=== PATIENT | female | born 1950 | race Caucasian/White ===

== ENCOUNTER 2016-09-12 21:38 | Emergency (ER) | payer OTHER ==
[2016-09-12 22:23] VITALS: BP 134/68; PULSE 77; RESP 18; TEMP 97.7; O2SAT 92
[2016-09-12] MEDS ORDERED: CEPHALEXIN 500 MG CAP PO ONE (22:58)
--- NOTE | 2016-09-12 23:02 | UCPHY ---
H & P Time Seen by Provider: 09/12/16 22:53 Patient Type: New HPI/ROS: This patient was done by a yellow jacket to right hand last night and had typical localized swelling but, itching and mild burning. However over the past 24 hours she has developed redness that is extended all the way up to her upper arm concerning her for infection. She reports moderate discomfort associated with this which diminishes with ibuprofen-400 mg at 8:00 p.m.. No other exacerbating factors except for some relief of itching with Benadryl. ROS: No fevers chills or other constitutional symptoms. GI: No nausea vomiting. Pulmonary: No wheezing or shortness of breath. Cardiovascular: No lightheadedness. 7 point ROS is otherwise negative. Past Medical/Surgical History: Hypothyroid Otherwise healthy Smoking Status: Never smoked Physical Exam: Physical Exam Vital signs are normal. General: No acute distress HEENT: Nose: Clear discharge bilaterally. No sinus tenderness to percussion. Oropharynx: No erythema or exudates. No dysphonia. No drooling or stridor. Eyes: Pupils equal and react to light. Extraocular motions are intact. Neck: Supple with no meningismus. No lymphadenopathy Lungs: Clear to auscultation bilaterally with no rales, rhonchi or wheeze. No respiratory distress. Cardiac: Regular rate and rhythm with no murmur gallop or rub Skin: Patient has confluent erythema extending to the dorsum of the right hand up the forearm to the mid upper arm-ulnar aspect with lymphangitic streaking in the upper arm. No fluctuance. No retained foreign bodies are noted. No other skin rash. Neuro: Alert with no focal deficits noted. Initial differential diagnosis: The sting with cellulitis, lymphangitis, allergic reaction Constitutional: Initial Vital Signs Temperature (C) 36.5 C 09/12/16 22:21 Heart Rate 77 09/12/16 22:21 Respiratory Rate 18 09/12/16 22:21 Blood Pressure 134/68 H 09/12/16 22:21 O2 Sat (%) 92 09/12/16 22:21 O2 Delivery Mode Room Air Allergies/Adverse Reactions: Penicillins Allergy (Intermediate, Verified 09/12/16 22:20) Rash codeine Allergy (Mild, Verified 09/12/16 22:20) Vomiting scallops Allergy (Intermediate, Uncoded 09/12/16 22:20) Diarrhea Home Medications: Medication Instructions Recorded Benadryl 09/12/16 Cephalexin [Keflex (*)] 500 mg PO QID #28 cap 09/12/16 Estrogens, Conjugated 09/12/16 Synthroid 09/12/16 Testosterone 09/12/16 MDM/Departure - MDM Medications Given: Discontinued Medications Cephalexin HCl (Keflex) 500 mg PO EDNOW ONE PRN Reason: Protocol Stop: 09/12/16 22:59 Last Admin: 09/12/16 23:02 Dose: 500 mg ED Course/Re-evaluation: Discussion: Patient here with bee sting with associated cellulitis and possible early lymphangitis without evidence of sepsis, anaphylaxis or other complicating factors. Counseled her regarding this. She is given a 1st dose of Keflex here. - Depart Disposition: Home, Routine, Self-Care Clinical Impression: Cellulitis Qualifiers: Site of cellulitis: extremity Site of cellulitis of extremity: upper extremity Laterality: right Qualified Code(s): L03.113 - Cellulitis of right upper limb Bee sting Qualifiers: Encounter type: initial encounter Injury intent: accidental or unintentional Qualified Code(s): T63.441A - Toxic effect of venom of bees, accidental ( unintentional), initial encounter Condition: Good Instructions: Cellulitis (ED), Insect Bite or Sting (ED) Additional Instructions: Diagnosis: 1. Bee sting 2. Cellulitis right arm Plan: Elevate the arm when able Keflex antibiotic Benadryl for itching or swelling Ibuprofen for pain and swelling as needed. Return for any significant worsening despite the treatment plan. Prescriptions: Cephalexin [Keflex (*)] 500 mg PO QID #28 cap Referrals: AMANDA NIÑO [Primary Care Provider] - As per Instructions - PQRS PQRS Measurement: 134: Depression screening and followup, PRIME MD-PHQ2 (12 years and older) Over the last 2 weeks, how often have you been bothered by any of the following problems? 1. Feeling down, depressed, or hopeless? 2. Little interest or pleasure in doing things? Patient answered no to both 1 and 2 130: Documentation of medications. Reviewed all patient medications, doses, route and frequency. 226: Do you smoke? [No.] 47: 65 and older: Advanced care planning. Patient designates surrogate decision maker as spouse 51: 18 years old and older with diagnosis of COPD, spirometry performance. NA 52: 18 years old and older with COPD and symptoms of COPD or FEV1<60% predicted prescribed a B Agonist. NA
== END 2016-09-12 23:07 | disposition home or self-care (01) ==
LOC: CED 21:38
DX: L03.113 Cellulitis of right upper limb (principal); T79.8XXA Other early complications of trauma, initial encounter; T63.441A Toxic effect of venom of bees, accidental (unintentional), initial encounter
CPT/HCPCS: G0463-PO

== ENCOUNTER → 2018-01-18 | Outpatient (CLI) | payer OTHER | LOC: BMCIMAGING 14:27 | PROVIDERS: ATTEND Orthopaedic Surgery | DX: M16.0 Bilateral primary osteoarthritis of hip (principal) ==

== ENCOUNTER 2018-04-06 06:38 | Inpatient (IN) | payer OTHER ==
[2018-04-06] MEDS ORDERED: ASPIRIN 81 MG CHEWABLE TAB PO ONE (06:54)
[2018-04-06 07:11] LABS: PLATELET COUNT 269 10^3/uL (150-400)
[2018-04-06] MEDS ORDERED: FAMOTIDINE 20 MG/NACL 50 ML IV ONE (07:24)
[2018-04-06] MEDS ORDERED: fentaNYL 100 MCG/2 ML INJ IVP ONE ×2 (07:24→08:52)
--- NOTE | 2018-04-06 07:32 | EDPHY ---
H & P Time Seen by Provider: 04/06/18 06:54 HPI/ROS: HPI Chest pain. 68-year-old female by private vehicle. She complains of anterior left-sided chest pain described as a squeezing and aching sensation since 9:00 p.m. Last night. She reports that it is more intense at times. She reports that she has had associated shortness of breath with it and that she does not feel like she can take a deep breath. She has a history of acid reflux. She is on Nexium for this. She states that her pain is different from the discomfort associated with her acid reflux. He has a family history of coronary artery disease on her father's side. Otherwise she denies other risk factors. ROS: Constitutional: No fever, no chills. No weakness. Eyes: No discharge. No changes in vision. ENT: No sore throat. No nasal congestion or rhinorrhea. Respiratory: No cough. As above. Cardiac: As above, no palpitations. Gastrointestinal: No abdominal pain, no vomiting, no diarrhea. Genitourinary: No hematuria. No dysuria or increased frequency with urination. Musculoskeletal: No back pain. No neck pain. No myalgias or arthralgias. Skin: No rashes. Neurological: No headache. No focal weakness or altered sensation. Past medical history: Hypothyroid, hernia, reflux, hysterectomy, but neck to me. She has seen Dr. David Tan in the past secondary to palpitations. Primary care is through [facility]. Social history: Nonsmoker. No alcohol. Here by herself. Physical Exam: General Appearance: Alert, she appears uncomfortable but not in distress. This patient is responding to questions appropriately and in full sentences. This patient appears well-hydrated and well-nourished. Eyes: Pupils equal and round no pallor or injection. No lid edema, erythema or injection. Respiratory: There are no retractions, lungs are clear to auscultation with good air movement bilaterally. Cardiovascular: Regular rate and rhythm. No murmur. No significant tenderness on palpation of the chest wall Gastrointestinal: Abdomen is soft and nontender, no masses, bowel sounds normal. No focal tenderness at McBurney's point. No Bocanegra sign. Neurological: Motor sensory function is grossly intact. Cranial nerves are normal. Gait is normal. Skin: Warm and dry, no rashes on inspection of the chest wall. Musculoskeletal: Neck is supple and nontender. Extremities are symmetrical. All joints range without pain or impingement. Psychiatric: No agitation. No depression. Database: EKG: EKG time is 6:50 a.m.; EKG shows a narrow complex normal sinus rhythm with a ventricular rate of 82. Subtle J-point elevation in 2, 3 and AVF. Subtle AL depression mostly in lead 1 and lead 2. The AL, QRS, QT intervals are within normal limits. No other ST-T wave changes indicative of ischemic or injury pattern. No evidence of right heart strain. Interpreted by me. EKG time is 10:30 a.m.; EKG shows a narrow complex normal sinus rhythm with a ventricular rate of 73. Left axis deviation noted. The AL, QRS, QT intervals are within normal limits. There are no ST-T wave changes indicative of ischemic or injury pattern. No evidence of right heart strain. Interpreted by me. Imaging: Chest x-ray AP portable; the cardiac mediastinal silhouette is unremarkable. No evidence of infiltrate or pneumothorax. No acute cardiopulmonary disease process noted. Interpreted by me. Procedures: Emergency department course: Triage vital signs reviewed. She is moderately hypertensive. Triage vital signs otherwise normal. On my evaluation of this patient blood pressure is currently 128/80. IV was placed. She was placed on a personnel monitor. EKG obtained and reviewed by myself. She was given 324 mg of chewed aspirin. She will also receive fentanyl, 25 mcg for anxiolysis and pain. This will be repeated as needed. Heart score is 4 7:55 a.m., patient re-evaluated. She is resting comfortably at this time. She denies any chest pain after above medications. Results of her diagnostic workup in the emergency department discussed. Plan for admission reviewed. She endorses. All of her questions were answered. Hospitalist paged. 8:00 a.m., spoke with on-call hospitalist. Case discussed in detail. Patient accepted for admission to telemetry observation under the care of Dr. Rosa Reynolds. Patient admitted in stable condition. 10:15 a.m., the patient is awaiting admission. She is still having some intermittent chest pain which she describes as mid substernal. She will be given a GI cocktail. EKG to be repeated and troponin to be repeated. She is supposed to go to the floor shortly. 10:43 a.m., 2nd troponin within normal limits. EKG repeated an unremarkable. Differential Diagnosis: The differential diagnosis on this patient includes but is not limited to acute coronary syndrome, GERD, PE. Aortic dissection unlikely. This represents a partial list of diagnoses considered. These considerations are based on history , physical exam, past history, reassessment and diagnostic testing. Smoking Status: Never smoked Constitutional: Initial Vital Signs Temperature (C) 36.4 C 04/06/18 06:39 Heart Rate 83 04/06/18 06:39 Respiratory Rate 16 04/06/18 06:39 Blood Pressure 142/112 H 04/06/18 06:39 O2 Sat (%) 97 04/06/18 06:39 O2 Delivery Mode Room Air O2 (L/minute) 0 Allergies/Adverse Reactions: Penicillins Allergy (Intermediate, Verified 04/06/18 06:43) Rash codeine Allergy (Mild, Verified 04/06/18 06:43) Vomiting scallops Allergy (Intermediate, Uncoded 04/06/18 06:43) Diarrhea Home Medications: Medication Instructions Recorded Levothyroxine [Synthroid 50 mcg 50 mcg PO DAILY06 09/12/16 (*)] Acyclovir [Zovirax 400 mg (*)] 800 mg PO BID PRN 04/06/18 Aspirin EC [Aspirin EC 81 mg (*)] 81 mg PO DAILY 04/06/18 Doxepin HCl 0.3 ml PO HS 04/06/18 Esomeprazole Magnesium 20 mg PO DAILY 04/06/18 Estrogen Compound 0.5 ml TP DAILY 04/06/18 Herbals/Supplements -Info Only 1 ea PO DAILY 04/06/18 Testosterone Compound 0.5 ml TP DAILY 04/06/18 Medical Decision Making - Diagnostics Imaging Results: Imaging Impressions Chest X-Ray 04/06/18 06:55 Impression: 1. Low-grade congestive heart failure/fluid overload. 2. See above report for additional findings. - Data Points Laboratory Results: Laboratory Results 04/06/18 06:55 04/06/18 06:55 04/06/18 04/06/18 04/06/18 06:55 06:55 06:55 WBC 9.29 10^3/uL 10^3/uL (3.80-9.50) RBC 5.11 10^6/uL 10^6/uL (4.18-5.33) Hgb 15.1 g/dL g/dL (12.6-16.3) Hct 45.8 % % (38.0-47.0) MCV 89.6 fL fL (81.5-99.8) MCH 29.5 pg pg (27.9-34.1) MCHC 33.0 g/dL g/dL (32.4-36.7) RDW 13.8 % % (11.5-15.2) Plt Count 269 10^3/uL 10^3/uL (150-400) MPV 10.3 fL fL (8.7-11.7) Neut % (Auto) 68.8 % % (39.3-74.2) Lymph % (Auto) 17.1 % % (15.0-45.0) [place] % (Auto) 8.7 % % (4.5-13.0) Eos % (Auto) 4.1 % % (0.6-7.6) Baso % (Auto) 1.0 % % (0.3-1.7) Nucleat RBC Rel Count 0.0 % % (0.0-0.2) Absolute Neuts (auto) 6.39 10^3/uL 10^3/uL (1.70-6.50) Absolute Lymphs (auto) 1.59 10^3/uL 10^3/uL (1.00-3.00) Absolute Monos (auto) 0.81 10^3/uL H 10^3/uL (0.30-0.80) Absolute Eos (auto) 0.38 10^3/uL 10^3/uL (0.03-0.40) Absolute Basos (auto) 0.09 10^3/uL 10^3/uL (0.02-0.10) Absolute Nucleated RBC 0.00 10^3/uL 10^3/uL (0-0.01) Immature Gran % 0.3 % % (0.0-1.1) Immature Gran # 0.03 10^3/uL 10^3/uL (0.00-0.10) PT 13.0 SEC SEC (12.0-15.0) INR 0.96 (0.83-1.16) APTT 28.1 SEC SEC (23.0-38.0) D-Dimer 0.31 ug/mLFEU ug/mLFEU (0.00-0.50) Sodium 141 mEq/L mEq/L (135-145) Potassium 4.3 mEq/L mEq/L (3.3-5.0) Chloride 105 mEq/L mEq/L (97-110) Carbon Dioxide 27 mEq/l mEq/l (22-31) Anion Gap 9 mEq/L mEq/L (6-14) BUN 18 mg/dL mg/dL (7-23) Creatinine 0.8 mg/dL mg/dL (0.6-1.0) Estimated GFR > 60 Glucose 96 mg/dL mg/dL (70-100) Calcium 10.5 mg/dL H mg/dL (8.5-10.4) Total Bilirubin 0.6 mg/dL mg/dL (0.1-1.4) Conjugated Bilirubin 0.1 mg/dL mg/dL (0.0-0.5) Unconjugated Bilirubin 0.5 mg/dL mg/dL (0.0-1.1) AST 27 IU/L IU/L (14-46) ALT 31 IU/L IU/L (9-52) Alkaline Phosphatase 82 IU/L IU/L (38-126) POC Troponin I Total Protein 7.8 g/dL g/dL (6.3-8.2) Albumin 4.6 g/dL g/dL (3.5-5.0) Lipase 308 IU/L H IU/L (23-300) 04/06/18 06:54 WBC RBC Hgb Hct MCV MCH MCHC RDW Plt Count MPV Neut % (Auto) Lymph % (Auto) [place] % (Auto) Eos % (Auto) Baso % (Auto) Nucleat RBC Rel Count Absolute Neuts (auto) Absolute Lymphs (auto) Absolute Monos (auto) Absolute Eos (auto) Absolute Basos (auto) Absolute Nucleated RBC Immature Gran % Immature Gran # PT INR APTT D-Dimer Sodium Potassium Chloride Carbon Dioxide Anion Gap BUN Creatinine Estimated GFR Glucose Calcium Total Bilirubin Conjugated Bilirubin Unconjugated Bilirubin AST ALT Alkaline Phosphatase POC Troponin I 0.00 ng/mL ng/mL (0.00-0.08) Total Protein Albumin Lipase Medications Given: Discontinued Medications Al Hydroxide/Mg Hydroxide (Maalox Susp) 30 ml PO ONCE ONE Stop: 04/06/18 10:10 Last Admin: 04/06/18 10:17 Dose: 30 ml Aspirin (Aspirin) 324 mg PO EDNOW ONE Stop: 04/06/18 06:55 Last Admin: 04/06/18 07:08 Dose: 324 mg Fentanyl (Sublimaze) 25 mcg IVP EDNOW ONE Stop: 04/06/18 07:25 Last Admin: 04/06/18 07:35 Dose: 25 mcg Fentanyl (Sublimaze) 50 mcg IVP EDNOW ONE Stop: 04/06/18 08:53 Last Admin: 04/06/18 08:55 Dose: 50 mcg Hyoscyamine Sulfate (Levsin, Hyomax-Sl) 0.25 mg PO ONCE ONE Stop: 04/06/18 10:10 Last Admin: 04/06/18 10:17 Dose: 0.25 mg Famotidine/Sodium Chloride (Pepcid 20 Mg (Premix)) 50 mls @ 200 mls/hr IV EDNOW ONE Stop: 04/06/18 07:38 Last Admin: 04/06/18 07:34 Dose: 50 mls Lidocaine (Lidocaine 2% Viscous) 15 ml PO ONCE ONE Stop: 04/06/18 10:10 Last Admin: 04/06/18 10:17 Dose: 15 ml Point of Care Test Results: Chemistry 04/06/18 06:54 POC Troponin I 0.00 ng/mL ng/mL (0.00-0.08) Departure - Departure Disposition: [facility] Inpatient Acute Clinical Impression: Chest pain
[2018-04-06 07:37] LABS: INR 0.96 (0.83-1.16)
[2018-04-06] MEDS ORDERED: HYOSCYAMINE SULFATE 0.125 MG TAB PO ONE (10:09)
[2018-04-06] MEDS ORDERED: MAG HYDROX/AL HYDROX/SIMETH 30 ML UDCUP PO ONE (10:09)
[2018-04-06] MEDS ORDERED: LIDOCAINE 2% VISCOUS 15 ML UDCUP PO ONE (10:09)
--- NOTE | 2018-04-06 11:03 | CPEKG ---
Test Reason : OPEN Blood Pressure : / mmHG Vent. Rate : 073 BPM Atrial Rate : 073 BPM P-R Int : 184 ms QRS Dur : 085 ms QT Int : 408 ms P-R-T Axes : 038 -39 034 degrees QTc Int : 450 ms Sinus rhythm Left axis deviation Confirmed by Evette Patiño ([id number]) on 04/06/2018 11:02:18 AM Referred By: Confirmed By:Evette Patiño
[2018-04-06] MEDS ORDERED: HYDROmorphONE/DILAUDID 1 MG/ML INJ IVP ONE (11:08)
[2018-04-06] MEDS ORDERED: ACETAMINOPHEN 325 MG TAB PO PRN (14:59)
[2018-04-06] MEDS ORDERED: ONDANSETRON 4 MG/2 ML VIAL IVP PRN (14:59)
[2018-04-06] MEDS ORDERED: ACYCLOVIR 400 MG TAB PO PRN (15:01)
[2018-04-06] MEDS: FAMOTIDINE 20 MG TAB PO SCH ×2 (15:10→20:36)
[2018-04-06] MEDS: ONDANSETRON DISINTEGRATING 4 MG TAB PO PRN ×2 (15:50→20:36)
[2018-04-06] MEDS ORDERED: HYDROmorphONE/DILAUDID 1 MG/ML INJ IVP PRN (16:09)
--- NOTE | 2018-04-06 16:17 | PDGENHP ---
History and Physical - Chief Complaint chest pain - History of Present Illness 68 yo female with h/o hypothyroidism presents to ED with CP, which started last night after a big meal. The pain is sharp, localized to her lower left sternal region with radiation to her back and up into her neck. It is worse with inspiration. Nothing alleviates the pain. She also endorses SOB and orthopnea. Denies weight gain or LE edema. When the pain persisted this am, she presented to the ED. In the ED, a troponin was negative. She received a GI cocktail with no relief. D dimer is negative. No recent travel or surgery. She notes h/o esophagitis , diagnosed by EGD several years ago for which she takes Nexium, but admits to missing some doses recently. History Information - Allergies/Home Medication List Allergies/Adverse Reactions: Penicillins Allergy (Intermediate, Verified 04/06/18 06:43) Rash codeine Allergy (Mild, Verified 04/06/18 06:43) Vomiting scallops Allergy (Intermediate, Uncoded 04/06/18 06:43) Diarrhea Home Medications: Levothyroxine [Synthroid 50 mcg (*)] 50 mcg PO DAILY06 09/12/16 [Last Taken 06:00] Acyclovir [Zovirax 400 mg (*)] 800 mg PO BID PRN 04/06/18 [Last Taken Unknown] Aspirin EC [Aspirin EC 81 mg (*)] 81 mg PO DAILY 04/06/18 [Last Taken 04/06/18 06:00] Doxepin HCl 0.3 ml PO HS 04/06/18 [Last Taken 04/05/18 21:00] Esomeprazole Magnesium 20 mg PO DAILY 04/06/18 [Last Taken 04/06/18 06:00] Estrogen Compound 0.5 ml TP DAILY 04/06/18 [Last Taken 04/05/18 09:00] Herbals/Supplements -Info Only 1 ea PO DAILY 04/06/18 [Last Taken 04/06/18 06:00 ] Testosterone Compound 0.5 ml TP DAILY 04/06/18 [Last Taken 04/05/18 09:00] I have personally reviewed and updated: family history, medical history, social history, surgical history - Past Medical History Additional medical history: Hypothyroidism. Hormone therapy - Surgical History Reports: hysterectomy - Family History Additional family history: paternal grandfather with CAD - Social History Smoking Status: Never smoked Alcohol Use: Rarely Drug Use: None Additional social history: Lives independently Review of Systems Review of Systems: ROS: 10pt was reviewed & negative except for what was stated in HPI & below Physical Exam Physical Exam: Temp Pulse Resp BP Pulse Ox 36.7 C 82 19 130/90 H 91 L 04/06/18 12:30 04/06/18 12:30 04/06/18 12:30 04/06/18 12:30 04/06/18 12:30 Constitutional: no apparent distress Eyes: PERRL Ears, Nose, Mouth, Throat: moist mucous membranes Cardiovascular: regular rate and rhythym Respiratory: no respiratory distress, inspiratory crackles Gastrointestinal: normoactive bowel sounds, soft, non-tender abdomen Skin: warm Musculoskeletal: full muscle strength Neurologic: AAOx3 Psychiatric: interacting appropriately Lab Data & Imaging Review 04/06/18 06:55 04/06/18 06:55 WBC 9.29 10^3/uL (3.80-9.50) 04/06/18 06:55 RBC 5.11 10^6/uL (4.18-5.33) 04/06/18 06:55 Hgb 15.1 g/dL (12.6-16.3) 04/06/18 06:55 Hct 45.8 % (38.0-47.0) 04/06/18 06:55 MCV 89.6 fL (81.5-99.8) 04/06/18 06:55 MCH 29.5 pg (27.9-34.1) 04/06/18 06:55 MCHC 33.0 g/dL (32.4-36.7) 04/06/18 06:55 RDW 13.8 % (11.5-15.2) 04/06/18 06:55 Plt Count 269 10^3/uL (150-400) 04/06/18 06:55 MPV 10.3 fL (8.7-11.7) 04/06/18 06:55 Neut % (Auto) 68.8 % (39.3-74.2) 04/06/18 06:55 Lymph % (Auto) 17.1 % (15.0-45.0) 04/06/18 06:55 [place] % (Auto) 8.7 % (4.5-13.0) 04/06/18 06:55 Eos % (Auto) 4.1 % (0.6-7.6) 04/06/18 06:55 Baso % (Auto) 1.0 % (0.3-1.7) 04/06/18 06:55 Nucleat RBC Rel Count 0.0 % (0.0-0.2) 04/06/18 06:55 Absolute Neuts (auto) 6.39 10^3/uL (1.70-6.50) 04/06/18 06:55 Absolute Lymphs (auto) 1.59 10^3/uL (1.00-3.00) 04/06/18 06:55 Absolute Monos (auto) 0.81 10^3/uL (0.30-0.80) H 04/06/18 06:55 Absolute Eos (auto) 0.38 10^3/uL (0.03-0.40) 04/06/18 06:55 Absolute Basos (auto) 0.09 10^3/uL (0.02-0.10) 04/06/18 06:55 Absolute Nucleated RBC 0.00 10^3/uL (0-0.01) 04/06/18 06:55 Immature Gran % 0.3 % (0.0-1.1) 04/06/18 06:55 Immature Gran # 0.03 10^3/uL (0.00-0.10) 04/06/18 06:55 PT 13.0 SEC (12.0-15.0) 04/06/18 06:55 INR 0.96 (0.83-1.16) 04/06/18 06:55 APTT 28.1 SEC (23.0-38.0) 04/06/18 06:55 D-Dimer 0.31 ug/mLFEU (0.00-0.50) 04/06/18 06:55 Sodium 141 mEq/L (135-145) 04/06/18 06:55 Potassium 4.3 mEq/L (3.3-5.0) 04/06/18 06:55 Chloride 105 mEq/L (97-110) 04/06/18 06:55 Carbon Dioxide 27 mEq/l (22-31) 04/06/18 06:55 Anion Gap 9 mEq/L (6-14) 04/06/18 06:55 BUN 18 mg/dL (7-23) 04/06/18 06:55 Creatinine 0.8 mg/dL (0.6-1.0) 04/06/18 06:55 Estimated GFR > 60 04/06/18 06:55 Glucose 96 mg/dL (70-100) 04/06/18 06:55 Calcium 10.5 mg/dL (8.5-10.4) H 04/06/18 06:55 Total Bilirubin 0.6 mg/dL (0.1-1.4) 04/06/18 06:55 Conjugated Bilirubin 0.1 mg/dL (0.0-0.5) 04/06/18 06:55 Unconjugated Bilirubin 0.5 mg/dL (0.0-1.1) 04/06/18 06:55 AST 27 IU/L (14-46) 04/06/18 06:55 ALT 31 IU/L (9-52) 04/06/18 06:55 Alkaline Phosphatase 82 IU/L (38-126) 04/06/18 06:55 POC Troponin I 0.01 ng/mL (0.00-0.08) 04/06/18 10:27 Total Protein 7.8 g/dL (6.3-8.2) 04/06/18 06:55 Albumin 4.6 g/dL (3.5-5.0) 04/06/18 06:55 Lipase 308 IU/L (23-300) H 04/06/18 06:55 Visualized and Interpreted Chest x-ray results: Yes Chest X-Ray results: no infiltrate Visualized and Interpreted EKG results: Yes EKG Interpretation: Positive for: normal sinsus rhythm, NS ST wave abnormalities Assessment & Plan Assessment: Chest pain (Acute) - Heart score 4. Differential includes ACS, PE, aortic dissection, GERD/esophageal spasm, MSK etiology. D dimer neg, but her symptoms are severe and pleuritic in nature, radiating to the back. CXR pers reviewed, query mild HF. -CTA now to r/o dissection and PE -send bnp, check echo- will consider a dose of lasix -trend trop (neg x2 almost 4 hrs apart and pain started last night) -likely plan for stress test in am, but will await results of above -repeat ekg reviewed, no dynamic changes -if cardiac w/u neg, consider worsening esophagitis- she did not improve with GI cocktail, will increase to BID protonix for now, consider GI consult for EGD if symptoms persist GERD - h/o esophagitis by EGD -resume PPI as above -consider GI consult for EGD Hypothyroidism - cont synthroid Full code Dispo - obs
[2018-04-06] MEDS ORDERED: IOPAMIDOL (ISOVUE 370) 100 ML BTL IV ONE (16:18)
[2018-04-06] MEDS ORDERED: HYDROmorphONE/DILAUDID 2 MG/ML INJ IVP PRN (16:30)
[2018-04-06] MEDS ORDERED: NITROGLYCERIN 0.4 MG BTL SL PRN (17:21)
[2018-04-06] MEDS ORDERED: NITROGLYCERIN 2% 1 GM PACKET TP SCH (18:00)
[2018-04-06] MEDS: HYDROCODONE/APAP 5/325 TAB PO PRN ×2 (20:35→21:48)
[2018-04-06] MEDS: PANTOPRAZOLE SODIUM 40 MG TAB PO SCH (20:36)
[2018-04-06] MEDS: DOXEPIN HCL PO SCH (21:49)
--- NOTE | 2018-04-07 05:08 | CPEKG ---
Test Reason : OPEN Blood Pressure : / mmHG Vent. Rate : 082 BPM Atrial Rate : 082 BPM P-R Int : 171 ms QRS Dur : 091 ms QT Int : 425 ms P-R-T Axes : 043 -49 053 degrees QTc Int : 497 ms Sinus rhythm Left anterior fascicular block ST elevation, consider inferior injury Borderline prolonged QT interval Confirmed by Dev Esparza ([id number]) on 04/07/2018 5:08:15 AM Referred By: Confirmed By:Dev Esparza
[2018-04-07] MEDS: LEVOTHYROXINE 50 MCG TAB PO SCH (06:34)
[2018-04-07] MEDS ORDERED: ALBUTEROL 3 ML DEYVIAL IH PRN (08:56)
[2018-04-07] MEDS ORDERED: PANTOPRAZOLE SODIUM 40 MG TAB PO SCH (09:00)
[2018-04-07] MEDS: ASPIRIN EC 81 MG TAB PO SCH (10:10)
[2018-04-07] MEDS: PANTOPRAZOLE SODIUM 40 MG TAB PO SCH ×2 (10:10→21:07)
[2018-04-07] MEDS: FAMOTIDINE 20 MG TAB PO SCH ×2 (10:10→21:07)
[2018-04-07] MEDS ORDERED: REGADENOSON 0.4 MG/5 ML SYR IVP ONE (10:16)
--- NOTE | 2018-04-07 11:49 | CPR ---
DATE OF PROCEDURE: 04/07/2018 PROCEDURE: Stress test. INDICATION: Atypical chest pain, cardiac screening, patient with history of palpitations. DESCRIPTION OF PROCEDURE: After informed consent, the patient was placed on a Hung protocol. She e xercised for a total of 4 minutes and 30 seconds on a Hung protocol. Maximum heart rate 139, maximu m blood pressure 130/60. With exercise, she had unifocal PVCs, some in bigeminal pattern, which she described as her palpitations. There teran no ischemic ST-T wave changes. In recovery, she rapidly r eturned to baseline state with resolution of her unifocal PVCs. There was no significant chest pain or arrhythmias other than the unifocal PVCs as noted. CONCLUSION: Exercise-induced unifocal premature ventricular contractions which somewhat replicated h er symptoms of "palpitations in the past." No clear-cut ischemia noted on this test. She had normal blood pressure and heart rate response. She had nuclear tracer injected 1 minute prior to ending ex ercise without incidence. This will be reported under separate report. Her exam was normal pre and post test. /[id number]/MODL
--- NOTE | 2018-04-07 13:43 | ASMTCMCOM ---
CM Note CM Note Notes: Patient admitted with chest pain. She had an exercise stress test today and will have resting tests done tomorrow. She is normally independent. She has had many friends at bedside today. I do not anticipate any CM needs, but we're available if this changes. Date Signed: 04/07/2018 01:42 PM Electronically Signed By:Zabrina Shen RN
--- NOTE | 2018-04-07 13:56 | HOSPPROG ---
Hospitalist Progress Note Assessment/Plan: Chest pain (Acute) - Symptoms severe yesterday, improved today. Heart score 4. Differential: ACS, PE, aortic dissection, GERD/esophageal spasm, MSK etiology. D dimer neg, but given her severe, pleuritic symptoms, CTA done which was negative for dissection and PE. BNP minimally elevated. Stress test today showed possible anterior septal defect with stress images. Also consider GI source with her h/o esophagitis by EGD. -will stay for resting images in am, radiology will arrange -with peribronchial wall thickening noted on CT, send RVP and trial nebs for possible bronchitis -cont PPI plus pepcid, recommend outpt f/u with GI for consideration of rpt EGD if cardiac w/u negative GERD - h/o esophagitis by EGD -as above, PPI, H2 troy, outpt GI f/u Hypothyroidism - cont synthroid Full code Dispo - change to inpt for further cardiac evaluation, resting images in am Subjective: Pt feels better today. Pain is not resolved, but much improved since yesterday. No SOB. She is coughing a little today, but denies sputum production. No fevers. Objective: Vital Signs Temp Pulse Resp BP Pulse Ox 36.9 C 90 14 127/67 H 93 04/07/18 11:35 04/07/18 11:47 04/07/18 11:47 04/07/18 11:35 04/07/18 11:47 04/06/18 04/07/18 04/08/18 05:59 05:59 05:59 Intake Total 840 Balance 840 PT 13.0 SEC (12.0-15.0) 04/06/18 06:55 INR 0.96 (0.83-1.16) 04/06/18 06:55 - Physical Exam Constitutional: no apparent distress Eyes: PERRL Ears, Nose, Mouth, Throat: moist mucous membranes Cardiovascular: regular rate and rhythym Respiratory: no respiratory distress, other (bibasilar crackles, ?atelectatic) Gastrointestinal: normoactive bowel sounds, soft, non-tender abdomen Skin: warm Musculoskeletal: full muscle strength Neurologic: AAOx3 Psychiatric: interacting appropriately ICD10 Worksheet Patient Problems: Problems Problem Status Onset Chest pain Acute Cellulitis Acute
--- NOTE | 2018-04-07 14:21 | ECHO ---
[email or web address] [address] Main: [phone] Fax: [email or web address] Echocardiogram Name: DIANNE COLVIN MR#: [id number] Study Date: 04/07/2018 Study Time: 12:16 PM Date of : 1950 Age: 68 year(s) Height: 154.9 cm (61 in.) Weight: 75.3 kg (166 lb.) BSA: 1.75 m2 Gender: Female Examination: Echo Indication: Chest Pain Image Quality: Contrast: Requested by: Rosa Reynolds BP: 127 mmHg/67 mmHg Heart Rate: Rhythm: Normal sinus rhythm Indication: Chest Pain Procedure Staff Cd Reactor Operator: Steve Martinez RDCS Reading Physician: Jurgen Campos MD Requesting Provider: Conclusions: Normal study Measurements: Chambers Valvular Assessment AV/MV Valvular Assessment TV/PV Normal Normal Normal Name Value Range Name Value Range Name Value Range Ao Jackie (MM): 2.8 cm (2.2 cm-3.7 AV Vmax: 1.48 m/s (1 m/s-1.7 TR Vmax: 1.81 mm/s ( - ) cm) m/s) TR PGmax: 13 mmHg ( - ) IVSd (2D): 1.0 cm (0.6 cm-1.1 AV maxP mmHg ( - ) syst. PAP: 18 mmHg ( - ) cm) LVOT Vmax: 0.91 m/s (0.7 m/s-1.1 PV Vmax: 1.03 m/s (0.6 m/s-0.9 LVDd (2D): 4.1 cm (3.9 cm-5.3 m/s) m/s) cm) AR (PHT): 406 ms ( - ) PV PGmax: 4 mmHg ( - ) LVDs (2D): 2.5 cm (2.1 cm-4 MV E Vmax: 0.62 m/s ( - ) cm) MV A Vmax: 0.81 m/s ( - ) LVPWd (2D): 1.0 cm ( - ) MV E/A: 0.77 ( - ) LVEF (2D): 69 (>=54 %) Continued Measurements: Chambers Valvular Assessment AV/MV Valvular Assessment TV/PV Name Value Name Value Name Value LADs Lon.6 cm MV E' Septal: 0.07 m/s CVP (est.): 5 mmHg LA Area: 14.3 cm2 MV E/E' Septal: 8.90 LA Volume: 36 ml MV E/E' Lateral: 9.00 LA Volume Index: 20.6 ml/m2 AR Vmax: 4.11 cm/s Findings: Left Ventricle: Normal size left ventricle. No LV hypertrophy. Normal global systolic LV function. EF is 69 %. No Patient: DIANNE COLVIN Study Date: 04/07/2018 Page 1 of 2 12:16 PM regional wall motion abnormality. Grade 1 diastolic dysfunction (abnormal relaxation). Right Ventricle: Normal size right ventricle. Normal RV function. Left Atrium: The left atrium is normal in size. Right Atrium: The right atrium is normal in size. Mitral Valve: The mitral valve is normal in appearance and function. There is no significant mitral valve regurgitation. Aortic Valve: The aortic valve opens well and there is mild aortic insufficiency.. Tricuspid Valve: The tricuspid valve appears normal. Trivial tricuspid valve regurgitation. The pulmonary artery pressure is normal. Pulmonic Valve: The pulmonic valve is normal in appearance and function. Aorta: The aorta is normal. Pericardium: No pericardial effusion. (No Signature Object) Patient: DIANNE COLVIN Study Date: 04/07/2018 Page 2 of 2 12:16 PM [id number]
--- NOTE | 2018-04-07 14:47 | PDMN ---
Medical Necessity Medical necessity: [facility] M89 CP A-1day: 68yo presents with CP, initially OBS for cardiac workup, nuc med test today showed possible anterior septal defect w/ stress images. Also consider GI source. CT shows peribronchial wall thickening , RVP pending and trial nebs. Pt requiring another MN for ongoing tele monitoring and diagnostic testing. Change to IP status for further cardiac evaluation, resting images in morning. Change to IP status 04/07/18 @ 1400 per MD order
[2018-04-07] MEDS: DOXEPIN HCL PO SCH (21:04)
[2018-04-08] MEDS: LEVOTHYROXINE 50 MCG TAB PO SCH (05:54)
[2018-04-08] MEDS: PANTOPRAZOLE SODIUM 40 MG TAB PO SCH (08:47)
[2018-04-08] MEDS: ASPIRIN EC 81 MG TAB PO SCH (08:47)
[2018-04-08] MEDS: FAMOTIDINE 20 MG TAB PO SCH (08:47)
[2018-04-08 11:15] VITALS: BP 114/59
--- NOTE | 2018-04-08 12:00 | PDCARPN ---
Cardiology Progress Note Chief Complaint: Palpitations, & chest discomfort Assessment/Plan: Assessment: Chest pain on admission following a big meal. She has history of palpitations. On review of chart it is noted that her chest pain has been noted in conjunction with PVC's. Nuclear stress testing started yesterday, and today resting images. If no cardiac abnormalities she will likely be discharged later today. Troponin was negative. D-Dimer was negative. GI cocktail with no relief at time of admission. GERD by EGD years ago. She has been taking Nexium. Plan: Nuc stress test resting images today. Discharge if no cardiac abnormalities. Will need to follow up with GI to optimize her GERD therapy. Nuclear Stress Test resting images shows no cardiac ischemia. Normal Nuclear Imaging test. 04/08/18 11:55 04/08/18 12:50 Subjective: She has underlying, continuous chest discomfort rated 2 out of 10. Reviewed/Discussed With: hospitalist, multidisciplinary team Time Spent with Patient: greater than 25 minutes Time Spent with Patient: Greater than 25 minutes spent on this patients care, greater than 50% of time spent counseling, educating, and coordinating care regarding the above mentioned plan. Objective: Vital Signs (8 Hrs) Temp Pulse Resp BP Pulse Ox 04/08/18 11:12 36.7 C 75 16 114/59 L 95 04/08/18 07:47 36.4 C 70 16 122/69 H 91 L 04/08/18 06:04 36.6 C 69 20 123/73 H 95 Intake/Output (24 Hrs) 04/07/18 04/08/18 04/09/18 05:59 05:59 05:59 Intake Total 400 Balance 400 Intake: Oral (ml) 400 Other: Intake Quantity Yes Sufficient Result Diagrams: 04/06/18 06:55 04/06/18 06:55 - Physical Exam Constitutional: no apparent distress Cardiovascular: regular rate and rhythm Respiratory: other (No shortness of breath) Skin: warm Neurologic: AAOx3 Psychiatric: cooperative, interactive ICD10 Worksheet Patient Problems: Problems Problem Status Onset Cellulitis Acute Chest pain Acute
--- NOTE | 2018-04-08 19:28 | PDDCSUM ---
Discharge Summary Discharge Summary: Date of Admission: 04/06/2018 Date of Discharge: 04/08/2018 Studies: 1. Exercise stress with MPI Discharge Diagnoses: 1. Chest pain, non-cardiac 2. GERD, h/o esophagitis 3. Osteoporosis (new diagnosis, not on meds) Brief Hospital Course: 68yo F with history of GERD and esophagitis (diagnosed on EGD in the past) presents with episode of acute chest pain. Given her risk factors, she was ruled out for ACS and underwent stress testing which was negative for ischemia. She also underwent a CTA of her chest which was negative for aortic pathology or PE. It was felt that her chest pain was GI related and seemed to improved with increase in her PPI and addition of H2RA. She will follow up with her PCP for this and consider GI referral. Medications: Please refer to EMR for complete list. Changes this admission include increasing esomeprazole from QD to BID dosing and adding famotidine 20mg BID. Follow Up Plan: 1. PCP clinic visit to assess response to PPI and H2RA, consider referral to GI for repeat EGD 2. Address new diagnosis of osteoporosis Physical Exam: Vitals and telemetry reviewed, stable. Alert and oriented, RRR without m/r/g, lungs clear, abdomen soft and nt, no leg edema or JVD.
== END 2018-04-08 13:58 | disposition home or self-care (01) | DRG 392 ==
LOC: F2W 12:05 → OBSVTOIN 04-07 14:00
PROVIDERS: ADMIT Hospitalist; ATTEND Internal Medicine
DX: K21.9 Gastro-esophageal reflux disease without esophagitis (principal); I49.3 Ventricular premature depolarization; M81.0 Age-related osteoporosis without current pathological fracture; E03.9 Hypothyroidism, unspecified
CPT/HCPCS: 84484-PO; 96365; A9500; G0378; J1170; J2785; J3010; J7613; Q9967

== ENCOUNTER → 2018-11-08 | Outpatient (CLI) | payer OTHER | LOC: FIMAGING 10:04 ==